=== PATIENT | female | born 1970 | race Caucasian/White ===

== ENCOUNTER 2018-02-12 01:53 | Observation (INO) | payer MEDICARE, MEDICAID ==
[2018-02-12] MEDS ORDERED: RACEPINEPHRINE HCL 2.25% NEB 0.5 ML AMPUL NEB ONE ×2 (02:16→02:18)
[2018-02-12] MEDS ORDERED: DEXAMETHASONE SOD PHOS INJ 10 MG/1 ML VIAL IV ONE (02:18)
[2018-02-12] MEDS ORDERED: DIPHENHYDRAMINE HCL 50 MG/ML VIAL IV ONE (02:20)
--- NOTE | 2018-02-12 02:22 | ER Document Report ---
ED General - General Chief Complaint: Respiratory Distress Stated Complaint: SHORTNESS OF BREATH Time Seen by Provider: 02/12/18 02:12 Notes: Patient is a 47-year-old female presents with complaint of stridor. Patient says that she has had not been of a sore throat intermittently over the last week but no difficulty breathing. Tonight her face turned red and suddenly she started having difficulty breathing with significant stridor. She is brought in by ambulance. The mother to give her 125 mg of Solu-Medrol. She denies any itching on her skin but says over the course of the last few days she has had a lot of itching in her eyes. She says she cannot receive shots of epinephrine because she has a history of recurrent ventricular tachycardia. She is currently on Bystolic. - Related Data Allergies/Adverse Reactions: codeine Allergy (Severe, Verified 02/12/18 03:30) Anaphylaxis flu virus vacc tvs (18 yr up) cell derived [From EZ Flu ( Flucelvax)(PF)] Allergy (Verified 02/12/18 03:56) carvedilol [From Coreg] Adverse Reaction (Verified 02/12/18 03:56) metoprolol [From Lopressor] Adverse Reaction (Verified 02/12/18 03:56) Past Medical History - Social History Smoking Status: Never Smoker Frequency of alcohol use: None Drug Abuse: None Family History: Reviewed & Not Pertinent Review of Systems - Review of Systems Notes: My Normal Review Basic REVIEW OF SYSTEMS: CONSTITUTIONAL : Denies fever, chills, or sweats. Denies recent illness. EENT: Stridor. Sore throat. CARDIOVASCULAR: Denies chest pain. RESPIRATORY: Denies cough, cold, or chest congestion. Denies shortness of breath, difficulty breathing, or wheezing. GASTROINTESTINAL: Denies abdominal pain. Denies nausea, vomiting, or diarrhea. Denies constipation. Last BM: MUSCULOSKELETAL: Denies neck or back pain or joint pain or swelling. SKIN: Denies rash or skin lesions. NEUROLOGICAL: Denies altered mental status or loss of consciousness. Denies headache. Denies weakness or paralysis or loss of use of either side. Denies problems with gait or speech. Denies sensory or motor loss. ALL OTHER SYSTEMS REVIEWED AND NEGATIVE. Physical Exam - Vital signs Vitals: Resp BP Pulse Ox 11 L 163/109 H 96 07/13/18 02:02 02/12/18 02:02 02/12/18 02:02 - Notes Notes: General Appearance: Well nourished, alert, cooperative, moderate acute distress , no obvious discomfort. Audible stridor with inspiration. Vitals: reviewed, See vital signs table. Head: no swelling or tenderness to the head Eyes: PERRL, EOMI, Conjuctiva clear Mouth: No decreasd moisture Throat: No swelling, edema or erythema to the pharynx. Neck: Supple, no neck tenderness, No thyromegaly Lungs: No wheezing, No rales, No rhonci, No accessory muscle use, good air exchange bilaterally. Heart: Normal rate, Regular rythm, No murmur, no rub Abdomen: Normal BS, soft, No rigidity, No abdominal tenderness, No guarding, no rebound, no abdominal masses, no organomegaly Skin: warm, dry, appropriate color, no rash Neuro: speech clear, oriented x 3, normal affect, responds appropriately to questions. Course - Re-evaluation Re-evalutation: 02/12/18 02:21 Patient has significant stridor with inspiration. Her lung [place] are otherwise clear and makes no noise with expiration. She has pain right at her larynx. I am concerned for laryngeal inflammation or swelling. I have ordered a racemic epi. She has a history of recurrent V. tach therefore have not ordered IM epi at this time. 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 This was several years ago. She has no history of vocal cord dysfunction. She denies recent fevers or infections. Her face is very red which she said did start tonight. She denies any itching other than some itching of her eyes over last several days. No new foods or medicines. She received Solu-Medrol from paramedics. I have ordered this Decadron as well as dose of Benadryl. I am given a racemic epi. If her stridor continues to not improve, we may have to consider intubation for airway protection. 02/12/18 02:40 His stridor has greatly improved with receiving the racemic epinephrine. I have ordered a CT scan to further evaluate soft tissues of her neck. Not had any PVCs or episodes of V. tach while receiving the racemic epi. 02/12/18 05:15 Patient's stridor has remained gone after receiving the racemic epi. Her voice is still not 100% normal but is much improved. She is now speaking full sentences. CT scan shows mild subglottic narrowing. Due to the significant amount of stridor she had when she first arrived I think it is appropriate to admit her for observation to make sure she does not have recurrence of her symptoms. Suspected subglottic narrowing is most likely related to viral type illness being that she had a sore throat for a few days leading up to this. There is no evidence of abscess or anything that needs surgical intervention at this time. I did speak with the hospitalist, Dr. Roberts, who agrees to admit the patient. Dictation of this chart was performed using voice recognition software; therefore, there may be some unintended grammatical errors. - Vital Signs Vital signs: Temp Pulse Resp BP Pulse Ox 98.6 F 13 143/89 H 96 02/12/18 02:04 02/12/18 03:01 02/12/18 03:01 02/12/18 03:01 - Laboratory Result Diagrams: 02/12/18 03:23 02/12/18 03:23 Laboratory results interpreted by me: 02/12/18 02/12/18 02/12/18 03:23 03:23 03:23 Seg Neutrophils % 83.3 H Monocytes % 2.3 L APTT 39.7 H Carbon Dioxide 21 L Glucose 155 H Discharge - Discharge Clinical Impression: Stridor, mild subglottic narrowing Condition: Stable Disposition: ADMITTED OBSERVATION Admitting Provider: Hospitalist Unit Admitted: IMCU Referrals: AMMON WATTS MD [Primary Care Provider] - Follow up as needed
[2018-02-12] MEDS ORDERED: NORMAL SALINE 500 ML IV ONE (02:40)
[2018-02-12 04:11] LABS: ABSOLUTE LYMPHOCYTES (AUTO) 1.1 10^3/uL (0.5-4.7); ABSOLUTE MONOCYTES (AUTO) 0.2 10^3/uL (0.1-1.4); ABSOLUTE NEUT (AUTO) 6.5 10^3/uL (1.7-8.2); BASOPHILS % (AUTO) 0.4 % (0-2); EOSINOPHILS % (AUTO) 0.4 % (0-6); HEMATOCRIT 41.5 % (36.0-47.0); HEMOGLOBIN 14.2 g/dL (12.0-15.5); LYMPHOCYTES % (AUTO) 13.6 % (13-45); MEAN CORPUSCULAR HEMOGLOBIN 31.9 pg (27.0-33.4); MEAN CORPUSCULAR HGB CONC 34.2 g/dL (32.0-36.0); MEAN CORPUSCULAR VOLUME 93 fl (80-97); MONOCYTES % (AUTO) 2.3 % (3-13); PLATELET COUNT 245 10^3/uL (150-450); RED BLOOD COUNT 4.44 10^6/uL (3.72-5.28); RED CELL DISTRIBUTION WIDTH 13.7 % (11.5-14.0); SEGMENTED NEUTROPHILS % (AUTO) 83.3 % (42-78); TOTAL CELLS COUNTED % (AUTO) 100 %; WHITE BLOOD COUNT 7.8 10^3/uL (4.0-10.5)
[2018-02-12 04:15] LABS: ALANINE AMINOTRANSFERASE 24 U/L (9-52); ALBUMIN 4.3 g/dL (3.5-5.0); ALKALINE PHOSPHATASE 79 U/L (38-126); ANION GAP 17 (5-19); ASPARTATE AMINO TRANSFERASE 18 U/L (14-36); BILIRUBIN,DIRECT 0.4 mg/dL (0.0-0.4); BILIRUBIN,TOTAL 0.4 mg/dL (0.2-1.3); BLOOD UREA NITROGEN 19 mg/dL (7-20); CALCIUM 9.9 mg/dL (8.4-10.2); CARBON DIOXIDE 21 mmol/L (22-30); CHLORIDE 107 mmol/L (98-107); GLUCOSE 155 mg/dL (75-110); POTASSIUM 3.6 mmol/L (3.6-5.0); SODIUM 144.8 mmol/L (137-145); TOTAL PROTEIN 7.9 g/dL (6.3-8.2)
[2018-02-12 04:24] LABS: INTERNATIONAL RATION (INR) 0.97; PROTHROMBIN TIME 13.4 SEC (11.4-15.4)
[2018-02-12 04:25] LABS: PARTIAL THROMBOPLASTIN TIME 39.7 SEC (23.5-35.8)
--- NOTE | 2018-02-12 04:34 | RADIOLOGY REPORT (SQ) ---
EXAM DESCRIPTION: CT NECK CHEST WITH IV CONTRAST COMPLETED DATE/TME: 02/12/2018 02:40 CLINICAL HISTORY: stridor COMPARISON: None available TECHNIQUE: Axial CT of the neck soft tissues obtained following the uncomplicated intravenous administration of 75 mL Isovue-370. FINDINGS: Visualized orbits and globes are unremarkable. No acute facial bone fractures. Paranasal sinuses are well aerated. Mastoid air cells aware well aerated. Visualized intracranial contents imaging no definite abnormalities. No abnormalities of visualized parotid or submandibular glands. Base of the tongue is symmetric without evidence of edema or mass. No cervical lymphadenopathy. Visualized carotid arteries and jugular veins are unremarkable. No abnormalities of the parapharyngeal space, pharyngeal mucosal space, or retropharyngeal space. No well-circumscribed fluid collection. Mild subglottic narrowing. No abnormalities of the epiglottis or vallecula. No abnormalities of the visualized lung apices or superior mediastinum. No abnormalities of the thyroid gland. Minimal degenerative change of the spine. DLP: 759.05 mGy-cm IMPRESSION: 1. Mild subglottic airway narrowing. These findings could be seen with upper respiratory infection such as croup. This exam was performed according to our departmental dose-optimization program, which includes automated exposure control, adjustment of the mA and/or kV according to patient size and/or use of iterative reconstruction technique.
[2018-02-12] MEDS ORDERED: KETOROLAC TROMETHAMINE INJ/PF 30 MG/1 ML SDV IV ONE (05:15)
[2018-02-12] MEDS ORDERED: PREDNISONE 20 MG TABLET PO ONE (05:15)
[2018-02-12] MEDS ORDERED: ACETAMINOPHEN 325 MG TABLET PO PRN (05:16)
[2018-02-12] MEDS ORDERED: MAG HYDROX/AL HYDROX/SIMETH SUSP 30 ML UDCUP PO PRN (05:16)
[2018-02-12] MEDS ORDERED: MAGNESIUM HYDROXIDE SUSP 30 ML UDCUP PO PRN (05:16)
[2018-02-12] MEDS ORDERED: IPRATROPIUM/ALBUTEROL 0.5-2.5 MG/3 ML AMPUL NEB PRN (05:16)
[2018-02-12] MEDS ORDERED: ONDANSETRON HCL INJ/PF 4 MG/2 ML SDV IV PRN (05:16)
[2018-02-12] MEDS ORDERED: NORMAL SALINE 1000 ML 1,000 ML IV ONE (05:18)
[2018-02-12] MEDS: HEPARIN SOD (PORCINE) 5,000 UNIT/ML 1 ML SYRINGE SUBCUT SCH ×3 (05:36→21:24)
--- NOTE | 2018-02-12 05:49 | PDOC H&P ---
History of Present Illness Admission Date/PCP: AMMON WATTS MD Patient complains of: Sore throat and shortness of breath History of Present Illness: MAILE BARRIGA is a 47 year old female with a past medical history of traumatic brain injury, hypothyroidism, migraine headache, paroxysmal atrial fibrillation , and hypertension. Patient presents with approximately 7 days of sore throat associated with nonproductive cough, denying fever, rhinorrhea or uncontrolled GERD. Her symptoms became more severe associated with facial erythema, itching eyes and throat, cough and stridor. EMS was called she received Solu-Medrol 125 mg IV and racemic epinephrine greatly improving her symptoms. She denies previous episode, new medications or infectious contacts. Past Medical History Cardiac Medical History: Reports: Atrial Fibrillation - since resolved, Hypertension Neurological Medical History: Reports: Migraine, Other - Traumatic brain injury , remote encephalitis. Endocrine Medical History: Reports: Hypothyroidism Past Surgical History Past Surgical History: Reports: Tonsillectomy, Tubal Ligation Social History Information Source: Patient Smoking Status: Never Smoker Frequency of Alcohol Use: Rare Drugs: None - Advance Directive Resuscitation Status: Full Code Family History Family History: Hypertension Parental Family History Reviewed: Yes Children Family History Reviewed: Yes Sibling(s) Family History Reviewed.: Yes Medication/Allergy Allergies/Adverse Reactions: codeine Allergy (Severe, Verified 02/12/18 03:30) Anaphylaxis flu virus vacc tvs (18 yr up) cell derived [From EZ Flu ( Flucelvax)(PF)] Allergy (Verified 02/12/18 03:56) carvedilol [From Coreg] Adverse Reaction (Verified 02/12/18 03:56) metoprolol [From Lopressor] Adverse Reaction (Verified 02/12/18 03:56) Review of Systems Constitutional: ABSENT: chills, fever(s), headache(s), weight gain, weight loss Eyes: ABSENT: visual disturbances Ears: ABSENT: hearing changes Cardiovascular: ABSENT: chest pain, dyspnea on exertion, edema, orthropnea, palpitations Respiratory: ABSENT: cough, hemoptysis Gastrointestinal: ABSENT: abdominal pain, constipation, diarrhea, hematemesis, hematochezia, nausea, vomiting Genitourinary: ABSENT: dysuria, hematuria Musculoskeletal: ABSENT: joint swelling Integumentary: ABSENT: rash, wounds Neurological: ABSENT: abnormal gait, abnormal speech, confusion, dizziness, focal weakness, syncope Psychiatric: ABSENT: anxiety, depression, homidical ideation, suicidal ideation Endocrine: ABSENT: cold intolerance, heat intolerance, polydipsia, polyuria Hematologic/Lymphatic: ABSENT: easy bleeding, easy bruising Physical Exam Vital Signs: Temp Pulse Resp BP Pulse Ox 98.6 F 13 143/89 H 96 02/12/18 02:04 02/12/18 03:01 02/12/18 03:01 02/12/18 03:01 Intake & Output 02/10/18 02/11/18 02/12/18 11:59 11:59 11:59 Weight 80.467 kg General appearance: PRESENT: no acute distress, well-developed, well-nourished Head exam: PRESENT: atraumatic, normocephalic Eye exam: PRESENT: conjunctiva pink, EOMI, PERRLA. ABSENT: scleral icterus Ear exam: PRESENT: normal external ear exam Mouth exam: PRESENT: moist, tongue midline Neck exam: ABSENT: carotid bruit, JVD, lymphadenopathy, thyromegaly Respiratory exam: PRESENT: clear to auscultation sofia. ABSENT: rales, rhonchi, wheezes Cardiovascular exam: PRESENT: RRR. ABSENT: diastolic murmur, rubs, systolic murmur Pulses: PRESENT: normal dorsalis pedis pul Vascular exam: PRESENT: normal capillary refill GI/Abdominal exam: PRESENT: normal bowel sounds, soft. ABSENT: distended, guarding, mass, organolmegaly, rebound, tenderness Rectal exam: PRESENT: deferred Extremities exam: PRESENT: full ROM. ABSENT: calf tenderness, clubbing, pedal edema Neurological exam: PRESENT: alert, awake, oriented to person, oriented to place , oriented to time, oriented to situation, CN II-XII grossly intact. ABSENT: motor sensory deficit Psychiatric exam: PRESENT: appropriate affect, normal mood. ABSENT: homicidal ideation, suicidal ideation Skin exam: PRESENT: dry, intact, warm. ABSENT: cyanosis, rash Results Laboratory Results: 02/12/18 03:23 02/12/18 03:23 02/12/18 02/12/18 03:23 03:23 WBC 7.8 RBC 4.44 Hgb 14.2 Hct 41.5 MCV 93 MCH 31.9 MCHC 34.2 RDW 13.7 Plt Count 245 Seg Neutrophils % 83.3 H Lymphocytes % 13.6 Monocytes % 2.3 L Eosinophils % 0.4 Basophils % 0.4 Absolute Neutrophils 6.5 Absolute Lymphocytes 1.1 Absolute Monocytes 0.2 Absolute Eosinophils 0.0 Absolute Basophils 0.0 Sodium 144.8 Potassium 3.6 Chloride 107 Carbon Dioxide 21 L Anion Gap 17 BUN 19 Creatinine 0.89 Est GFR ( Amer) > 60 Est GFR (Non-Af Amer) > 60 Glucose 155 H Calcium 9.9 Total Bilirubin 0.4 AST 18 ALT 24 Alkaline Phosphatase 79 Total Protein 7.9 Albumin 4.3 Impressions: Soft Tissue Neck CT 02/12/18 02:40 IMPRESSION: 1. Mild subglottic airway narrowing. These findings could be seen with upper respiratory infection such as croup. This exam was performed according to our departmental dose-optimization program, which includes automated exposure control, adjustment of the mA and/or kV according to patient size and/or use of iterative reconstruction technique. Assessment & Plan - Diagnosis (1) Stridor Is this a current diagnosis for this admission?: Yes Plan: Presumed allergic versus viral prodrome, telemetry observation, I will continue Pepcid, 1 mg/kg prednisone with observation for rebound. Trial liquid diet as tolerated. (2) Hypertension Is this a current diagnosis for this admission?: Yes Plan: Resume outpatient regiment - Time Time Spent: 30 to 50 Minutes
[2018-02-12] MEDS: PREDNISONE 20 MG TABLET PO SCH ×2 (09:52→18:18)
[2018-02-12] MEDS: FAMOTIDINE 20 MG TABLET PO SCH ×2 (09:52→21:24)
[2018-02-12] MEDS ORDERED: LEVOTHYROXINE SODIUM 0.025 MG TABLET PO ONE (16:45)
[2018-02-12] MEDS ORDERED: NEBIVOLOL HCL 10 MG TABLET PO ONE (16:45)
[2018-02-12] MEDS ORDERED: ASPIRIN 81 MG TABLET, ENT COATED PO ONE (17:00)
[2018-02-12] MEDS ORDERED: LISINOPRIL 10 MG TABLET PO ONE (17:00)
[2018-02-13] MEDS: HEPARIN SOD (PORCINE) 5,000 UNIT/ML 1 ML SYRINGE SUBCUT SCH (05:22)
[2018-02-13 06:52] LABS: ABSOLUTE LYMPHOCYTES (AUTO) 1.9 10^3/uL (0.5-4.7); ABSOLUTE NEUT (AUTO) 10.9 10^3/uL (1.7-8.2); BASOPHILS % (AUTO) 0.2 % (0-2); EOSINOPHILS % (AUTO) 0.1 % (0-6); HEMOGLOBIN 12.5 g/dL (12.0-15.5); LYMPHOCYTES % (AUTO) 13.8 % (13-45); MEAN CORPUSCULAR HEMOGLOBIN 32.4 pg (27.0-33.4); MEAN CORPUSCULAR HGB CONC 34.8 g/dL (32.0-36.0); MEAN CORPUSCULAR VOLUME 93 fl (80-97); MONOCYTES % (AUTO) 6.9 % (3-13); PLATELET COUNT 260 10^3/uL (150-450); RED BLOOD COUNT 3.86 10^6/uL (3.72-5.28); TOTAL CELLS COUNTED % (AUTO) 100 %; WHITE BLOOD COUNT 13.8 10^3/uL (4.0-10.5)
[2018-02-13 07:05] LABS: ANION GAP 10 (5-19); BLOOD UREA NITROGEN 11 mg/dL (7-20); CALCIUM 9.3 mg/dL (8.4-10.2); CARBON DIOXIDE 23 mmol/L (22-30); CHLORIDE 110 mmol/L (98-107); GLUCOSE 180 mg/dL (75-110); SODIUM 142.8 mmol/L (137-145)
[2018-02-13 08:45] VITALS: BP 99/61
--- NOTE | 2018-02-13 11:11 | PDOC DISCHARGE SUMMARY ---
General - Admit/Disc Date/PCP Admission Date/Primary Care Provider: 02/12/18 05:42 AMMON WATTS MD Discharge Date: 02/13/18 - Discharge Diagnosis (1) Stridor Is this a current diagnosis for this admission?: Yes Summary: Unclear precipitating factor. Has had no new medications, exposure to allergens , or foods. Was exposed to smoke from new grill which might have contributed. In ER, patient received epi, IV steroids, benadryl, and pepcid with improvement in symptoms. Given that patient is on Lisinopril and its known association with angioedema, she was given a test dose last night and tolerated well without symptoms. On day of discharge, feeling well. Discharge plan - Script given for epi pen - Script given for pepid - Advised to purchase OTC Benadryl to have as needed (2) Hypertension Is this a current diagnosis for this admission?: Yes Summary: Stable, continued home medications at discharge. (3) Leukocytosis Is this a current diagnosis for this admission?: Yes Summary: Noted on day of discharge. Likely due to steroid use. No fevers, chills, or signs of infection. - Additional Information Resuscitation Status: Full Code Discharge Diet: As Tolerated, Regular Discharge Activity: Activity As Tolerated Prescriptions: Epinephrine 0.3 mg IJ ONCALL PRN #1 ml PRN Reason: Itching Famotidine [Pepcid 20 mg Tablet] 20 mg PO Q12 PRN #30 tablet PRN Reason: Itching Home Medications: Aspirin [Aspirin EC] 81 mg PO DAILY@159902/12/18 Butalb/Acetaminophen/Caffeine [Fioricet (50-325-40 mg) Tablet] 1 tab PO Q4HP PRN 02/12/18 Diphenhydramine HCl [Benadryl 25 mg Capsule] 25 mg PO HSP PRN 02/12/18 Levothyroxine Sodium [Synthroid 0.025 mg Tablet] 0.025 mg PO DAILY@1599 Lisinopril [Prinivil 10 mg Tablet] 10 mg PO DAILY@159902/12/18 Melatonin 10 mg PO HSP PRN 02/12/18 Nebivolol HCl [Bystolic 10 mg Tablet] 10 mg PO DAILY@159902/12/18 Promethazine HCl [Phenergan 25 mg Tablet] 25 mg PO Q6HP PRN 02/12/18 Tizanidine HCl [Zanaflex 4 mg Tablet] 6 mg PO HSP PRN 02/12/18 Tramadol HCl [Ultram 50 mg Tablet] 50 mg PO Q6HP PRN 02/12/18 Epinephrine 0.3 mg IJ ONCALL PRN #1 ml 02/13/18 Famotidine [Pepcid 20 mg Tablet] 20 mg PO Q12 PRN #30 tablet 02/13/18 History of Present Illness Patient complains of: Stridor, itching History of Present Illness: MAILE BARRIGA is a 47 year old female with a past medical history of traumatic brain injury, hypothyroidism, migraine headache, paroxysmal atrial fibrillation , and hypertension. Patient presents with approximately 7 days of sore throat associated with nonproductive cough, denying fever, rhinorrhea or uncontrolled GERD. Her symptoms became more severe associated with facial erythema, itching eyes and throat, cough and stridor. EMS was called she received Solu-Medrol 125 mg IV and racemic epinephrine greatly improving her symptoms. She denies previous episode, new medications or infectious contacts. Physical Exam Vital Signs: Temp Pulse Resp BP Pulse Ox 98.2 F 69 16 94/49 L 97 02/13/18 08:31 02/13/18 08:31 02/13/18 08:31 02/13/18 08:31 02/13/18 08:31 Intake & Output 02/12/18 02/13/18 02/14/18 06:59 06:59 06:59 Weight 85 kg General appearance: PRESENT: no acute distress, cooperative, obese Head exam: PRESENT: normocephalic Mouth exam: PRESENT: moist, tongue midline Throat exam: ABSENT: post pharyngeal erythema, tonsillar erythema Respiratory exam: PRESENT: unlabored. ABSENT: stridor, tachypnea, wheezes Cardiovascular exam: PRESENT: RRR. ABSENT: tachycardia GI/Abdominal exam: PRESENT: soft. ABSENT: tenderness Musculoskeletal exam: PRESENT: ambulatory Neurological exam: PRESENT: alert, awake, CN II-XII grossly intact Psychiatric exam: PRESENT: appropriate affect Results Laboratory Results: 02/13/18 06:15 02/13/18 06:15 02/13/18 02/13/18 06:15 06:15 WBC 13.8 H RBC 3.86 Hgb 12.5 Hct 36.0 MCV 93 MCH 32.4 MCHC 34.8 RDW 14.0 Plt Count 260 Seg Neutrophils % 79.0 H Lymphocytes % 13.8 Monocytes % 6.9 Eosinophils % 0.1 Basophils % 0.2 Absolute Neutrophils 10.9 H Absolute Lymphocytes 1.9 Absolute Monocytes 1.0 Absolute Eosinophils 0.0 Absolute Basophils 0.0 Sodium 142.8 Potassium 4.0 Chloride 110 H Carbon Dioxide 23 Anion Gap 10 BUN 11 Creatinine 0.66 Est GFR ( Amer) > 60 Est GFR (Non-Af Amer) > 60 Glucose 180 H Calcium 9.3 Impressions: Soft Tissue Neck CT 02/12/18 02:40 IMPRESSION: 1. Mild subglottic airway narrowing. These findings could be seen with upper respiratory infection such as croup. This exam was performed according to our departmental dose-optimization program, which includes automated exposure control, adjustment of the mA and/or kV according to patient size and/or use of iterative reconstruction technique. Qualifiers - * PATIENT BEING DISCHARGED WITH ANY OF THE FOLLOWING DIAGNOSIS: No Plan Time Spent: Less than 30 Minutes
[2018-02-13] MEDS ORDERED: LISINOPRIL 10 MG TABLET PO SCH (16:00)
[2018-02-13] MEDS ORDERED: ASPIRIN 81 MG TABLET, ENT COATED PO SCH (16:00)
[2018-02-13] MEDS ORDERED: LEVOTHYROXINE SODIUM 0.025 MG TABLET PO SCH (16:00)
[2018-02-13] MEDS ORDERED: NEBIVOLOL HCL 10 MG TABLET PO SCH (16:00)
== END 2018-02-13 09:57 | disposition home or self-care (01) ==
LOC: ER 01:53 → EH 05:42 → 5 15:22
PROVIDERS: ADMIT Internal Medicine; ATTEND Internal Medicine
DX: R06.1 Stridor (principal); T75.89XA Other specified effects of external causes, initial encounter; X58.XXXA Exposure to other specified factors, initial encounter; I10 Essential (primary) hypertension; D72.829 Elevated white blood cell count, unspecified; E03.9 Hypothyroidism, unspecified; L53.8 Other specified erythematous conditions; J02.9 Acute pharyngitis, unspecified; H57.8 Other specified disorders of eye and adnexa; Z79.82 Long term (current) use of aspirin; Z79.899 Other long term (current) drug therapy; Z86.19 Personal history of other infectious and parasitic diseases; Z98.890 Other specified postprocedural states
CPT/HCPCS: 94640; 99285; 96361; 96374; 96375; 36415 ×2; 85025 ×2; 85610; 85730; 80048; 80053; 70491; G0378 ×3; A9270 ×2; J1200; J1885; J7030; J7040; J1100; J3490; J7512

== ENCOUNTER 2018-06-14 21:00 | Emergency (ER) | payer MEDICARE, MEDICAID ==
[2018-06-14 21:47] VITALS: BP 132/89
--- NOTE | 2018-06-14 22:27 | RADIOLOGY REPORT (SQ) ---
EXAM DESCRIPTION: XR SHOULDER 2 OR MORE VIEWS COMPLETED DATE/TME: 06/14/2018 21:50 CLINICAL HISTORY: 47 years, Female, pain on movement COMPARISON: None. NUMBER OF VIEWS: 3 TECHNIQUE: 3 view right shoulder LIMITATIONS: None. FINDINGS: Negative for fracture or dislocation. Soft tissues are unremarkable. Joint spaces are preserved IMPRESSION: Negative exam 2010 [facility] [employer]- All Rights Reserved
[2018-06-14] MEDS ORDERED: LIDOCAINE 5% (700 MG) TRANSDERMAL ADH..PATCH TP ONE (23:08)
--- NOTE | 2018-06-14 23:13 | ER Document Report ---
ED Extremity Problem, Upper - General Chief Complaint: Shoulder Pain Stated Complaint: SHOULDER PAIN Time Seen by Provider: 06/14/18 21:52 Mode of Arrival: Ambulatory Information source: Patient Notes: 47-year-old female presented to ED for complaint of pain to her right shoulder since Thursday. She states she was loading some order in the car when she had a little twinge. She states later on when she took a shower the pain become much worse. She states she had full range of motion and until earlier today. She was at work and now she is not able to move her arm above her head. Patient is alert and oriented respirations regular and unlabored speaking with full sentences. TRAVEL OUTSIDE OF THE [place] IN LAST 30 DAYS: No - HPI Patient complains to provider of: Right, Shoulder Onset: Other - Thursday Recent injury: Possibly Where: Outdoors Quality of pain: Achy, Sharp Severity of pain: Moderate Pain Level: 3 Context: Other - Lifting water bottles Associated symptoms: Other Exacerbated by: Movement - Pain to right shoulder after lifting water bottles, Exertion Relieved by: Rest, Positioning Similar symptoms previously: Yes Recently seen / treated by doctor: No - Related Data Allergies/Adverse Reactions: codeine Allergy (Severe, Verified 02/12/18 10:00) Anaphylaxis flu virus vacc tvs (18 yr up) cell derived [From EZ Flu ( Flucelvax)(PF)] Allergy (Verified 02/12/18 10:00) carvedilol [From Coreg] Adverse Reaction (Verified 02/12/18 10:01) metoprolol [From Lopressor] Adverse Reaction (Verified 02/12/18 10:01) Past Medical History - General Information source: Patient - Social History Smoking Status: Former Smoker Frequency of alcohol use: Occasional Drug Abuse: None Occupation: Disabled Lives with: Spouse/Significant other - Female significant other Family History: Hypertension Patient has suicidal ideation: No Patient has homicidal ideation: No - Medical History Medical History: Other - Patient states she had [place] fever with brain injury and neuro results as well as she had respiratory failure and was intubated due to the [place] - Past Medical History Cardiac Medical History: Reports: Hx Atrial Fibrillation - With RVR since resolved, Hx Hypertension Pulmonary Medical History: Reports: Hx Respiratory Failure - Intubation due to [place] fever Neurological Medical History: Reports: Hx Migraine, Hx Seizures - possible febrile activity Endocrine Medical History: Reports: Hx Hypothyroidism Renal/ Medical History: Reports: None Malignancy Medical History: Reports: None GI Medical History: Reports: None Musculoskeletal Medical History: Reports None Skin Medical History: Reports None Psychiatric Medical History: Reports: None Traumatic Medical History: Reports: None Infectious Medical History: Reports: None Past Surgical History: Reports: Hx Cholecystectomy, Hx Tonsillectomy, Hx Tubal Ligation - Immunizations Immunizations up to date: Yes Review of Systems - Review of Systems Notes: REVIEW OF SYSTEMS: CONSTITUTIONAL : Denies fever, chills, or sweats. Denies recent illness. EENT: Denies eye, ear, throat, or mouth pain or symptoms. Denies nasal or sinus congestion or discharge. Denies throat, tongue, or mouth swelling or difficulty swallowing. CARDIOVASCULAR: Denies chest pain. Denies palpitations or racing or irregular heart beat. Denies ankle edema. RESPIRATORY: Denies cough, cold, or chest congestion. Denies shortness of breath, difficulty breathing, or wheezing. GASTROINTESTINAL: Denies abdominal pain or distention. Denies nausea, vomiting , or diarrhea. Denies blood in vomitus, stools, or per rectum. Denies black, tarry stools. Denies constipation. GENITOURINARY: Denies difficulty urinating, painful urination, burning, frequency, blood in urine, or discharge. FEMALE GENITOURINARY: Denies vaginal bleeding, heavy or abnormal periods, irregular periods. Denies vaginal discharge or odor. MUSCULOSKELETAL: Denies back or neck pain or stiffness. Complains of pain and decreased range of motion after she lifted water on Thursday and she states it was just a twinge at that time and then when needed when she took her shower and raised her hands above her shoulder the pain was and has progressed. SKIN: Denies rash, lesions or sores. HEMATOLOGIC : Denies easy bruising or bleeding. LYMPHATIC: Denies swollen, enlarged glands. NEUROLOGICAL: Denies confusion or altered mental status. Denies passing out or loss of consciousness. Denies dizziness or lightheadedness. Denies headache. Denies weakness or paralysis or loss of use of either side. Denies problems with gait or speech. Denies sensory loss, numbness, or tingling. Denies seizures. PHYSICAL EXAMINATION: GENERAL: Well-appearing, well-nourished and in no acute distress. HEAD: Atraumatic, normocephalic. EYES: Pupils equal round and reactive to light, extraocular movements intact, conjunctiva are normal. ENT: Nares patent, oropharynx clear without exudates. Moist mucous membranes. NECK: Normal range of motion, supple without lymphadenopathy LUNGS: Breath sounds clear to auscultation bilaterally and equal. No wheezes rales or rhonchi. HEART: Regular rate and rhythm without murmurs ABDOMEN: Soft, nontender, nondistended abdomen. No guarding, no rebound. No masses appreciated. Female : deferred Musculoskeletal: Patient needs to be encouraged to do range of motion to the right shoulder. When encouraged and supported the weight of the arm she does full range of motion. She complains of tenderness to the top of the shoulder. She states she is not able to take Tylenol or ibuprofen due to the effects of the [place] fever. NEUROLOGICAL: Cranial nerves grossly intact. Normal speech, normal gait. Normal sensory, motor exams PSYCH: Normal mood, normal affect. SKIN: Warm, Dry, normal turgor, no rashes or lesions noted. PSYCHIATRIC: Denies anxiety or stress. Denies depression, suicidal ideation, or homicidal ideation. ALL OTHER SYSTEMS REVIEWED AND NEGATIVE. Dictation was performed using [employer] voice recognition software Physical Exam - Vital signs Vitals: Temp Pulse Resp BP Pulse Ox 97.7 F 57 L 18 132/89 H 99 06/14/18 21:40 06/14/18 21:40 06/14/18 21:40 06/14/18 21:40 06/14/18 21:40 Course - Vital Signs Vital signs: Temp Pulse Resp BP Pulse Ox 97.7 F 57 L 18 132/89 H 99 06/14/18 21:40 06/14/18 21:40 06/14/18 21:40 06/14/18 21:40 06/14/18 21:40 Procedures - Immobilization Right Shoulder Time completed: 23:25 Immobilizer type: Sling Performed by: PCT Post-Proc Neuro Vasc Exam: Normal Alignment checked and good: Yes Discharge - Discharge Clinical Impression: Right shoulder injury Qualifiers: Encounter type: initial encounter Qualified Code(s): S49.91XA - Unspecified injury of right shoulder and upper arm, initial encounter Condition: Stable Disposition: HOME, SELF-CARE Additional Instructions: Shoulder Injury You have injured your shoulder. This usually results from stretching or tearing of the tendons during trauma. Time and protection are required in order to heal properly. Many injuries are quite disabling, and should be taken seriously. Initial treatment includes cold packs and a sling to rest the shoulder. The physician has assessed the seriousness of your injury, and has outlined a treatment plan. Understand that this treatment may change, depending on how you progress. If a re-examination was recommended, it is important that you follow up as instructed. Some shoulder injuries (such as partial tear of the rotator cuff) are only suspected after you've failed to improve. Call us if there's severe pain, numbness, or loss of function. Exercise Program for the Shoulder Since the shoulder moves in so many directions, the joint attachment is weak. Muscles provide most of the stability to the shoulder. You must exercise your shoulder to prevent painful instability or stiffening. PASSIVE - These may be begun within a few days of the injury. While standing, lean forward, allowing the arm to hang down towards the floor. Move the arm in small circles while slowly twisting your chest towards and away from the hanging arm. Do this for one minute. ACTIVE - These may be performed when the doctor gives permission. Begin with the arms at the sides. Raise the arms forward (shoulder's width apart) until they reach shoulder level. Then slowly swing both arms back until they are aiming straight out away from each other. Then bring them forward again, and finally, lower them to your sides. Repeat 20 to 30 times. As you improve, put weights in your hands for the exercise. Start with one pound, and work up to 10 pounds. Never use more than is comfortable. Athletes may work up to 30 pounds. Sling as Treatment A sling has been applied to protect the injury. This is adequate immobilization for this type of injury -- no cast or brace is required. Keep the sling on at all times until instructed to remove it by the doctor. Even though no cast or splint is needed, you must use the sling. If you use the arm too soon, it may not heal properly! If necessary, the sling can be adjusted for comfort. Return if you are encountering problems with the sling. Ice Packs Apply ice packs frequently against the painful area. Many different schedules are recommended, such as "20 minutes on, 20 minutes off" or "one hour ice, two hours rest." If you need to work, you may need to go longer between ice treatments. You should plan to have the area ice packed AT LEAST one fourth of the time. The ice should be applied over the wrap, tape, or splint, or over a layer of cloth -- not directly against the skin. Some ice bags have a built-in cloth and can be put directly on the skin. We have applied a Lidoderm patch to the front of your shoulder for your pain. Please remove this patch in 12 hours. Then you need to wait 12 hours before you use either [id number] Lidoderm patches or Aspercreme lidocaine gel. Please follow the instructions on the packages. Please schedule an appointment with your primary care doctor as soon as possible. I have given you the name and number of orthopedics you can call them to see if you have to go through your primary care doctor before following up with orthopedics. Your xray was negative, you will need to follow up with orthopedics for any muscle, ligaments, tendon or nerve damage. FOLLOW-UP CARE: If you have been referred to a physician for follow-up care, call the physician s office for an appointment as you were instructed or within the next two days. If you experience worsening or a significant change in your symptoms, notify the physician immediately or return to the Emergency Department at any time for re-evaluation. Forms: Elevated Blood Pressure Referrals: TOMEKA CALIXTO PA-C [Primary Care Provider] - Follow up as needed CONNER GLASGOW MD [ACTIVE STAFF] - Follow up as needed
== END 2018-06-14 23:29 | disposition home or self-care (01) ==
LOC: ER 21:00
DX: S49.91XA Unspecified injury of right shoulder and upper arm, initial encounter (principal); X58.XXXA Exposure to other specified factors, initial encounter; I48.91 Unspecified atrial fibrillation; I10 Essential (primary) hypertension; Z88.6 Allergy status to analgesic agent; Z90.49 Acquired absence of other specified parts of digestive tract; Z98.51 Tubal ligation status
CPT/HCPCS: 99283